=== PATIENT | male | born 1945 | race Hispanic/Latino ===

== ENCOUNTER 2020-10-24 17:46 | Emergency (ER) | payer MEDICARE ==
--- NOTE | 2020-10-24 18:40 | Event Note ---
ED Screening Note Date of service: 10/24/20 ED Screening Note: Patient complains of dysuria and hematuria x1 day History of prostate cancer Denies being on blood thinners This initial assessment/diagnostic orders/clinical plan/treatment(s) is/are subject to change based on patients health status, clinical progression and re- assessment by fellow clinical providers in the ED. Further treatment and workup at subsequent clinical providers discretion. Patient/guardian urged not to elope from the ED as their condition may be serious if not clinically assessed and managed. Initial orders include: Labs
[2020-10-24 18:51] VITALS: BP 149/88
[2020-10-24 18:57] LABS: Basophils # (Auto) 0.1 K/mm3 (0.0-0.1); Eosinophils # (Auto) 0.2 K/mm3 (0.0-0.4); Eosinophils % (Auto) 2.6 % (0.0-4.3); Hemoglobin 15.1 gm/dl (11.8-15.2); Lymphocytes # (Auto) 1.8 K/mm3 (1.2-5.4); Lymphocytes % (Auto) 30.1 % (13.4-35.0); Mean Corpuscular HGB Conc 34 % (32-34); Mean Corpuscular Volume 95 fl (84-94); Monocytes # (Auto) 0.5 K/mm3 (0.0-0.8); Monocytes % (Auto) 9.1 % (0.0-7.3); Platelet Count 237 K/mm3 (140-440); Red Blood Count 4.62 M/mm3 (3.65-5.03); Red Cell Distribution Width 14.4 % (13.2-15.2)
[2020-10-24 18:59] LABS: Bacteria,Urine 4+ /HPF (Negative); Mucus,Urine 3+ /HPF; Sperm,Urine 3+ /HPF (NP)
[2020-10-24 19:08] LABS: INR 1.06 (0.87-1.13); Partial Thromboplastin Time 29.2 Sec. (24.2-36.6)
[2020-10-24 19:18] LABS: Alanine Aminotransferase 13 units/L (7-56); Albumin 4.4 g/dL (3.9-5); BUN/Creatinine Ratio 19; Blood Urea Nitrogen 19 mg/dL (9-20); Calcium 9.4 mg/dL (8.4-10.2); Hemolysis Index 8
[2020-10-24 19:20] LABS: RBC,Urine > 182.0 /HPF (0.0-6.0); WBC,Urine > 182.0 /HPF (0.0-6.0)
--- NOTE | 2020-10-24 22:05 | Emergency Department Report ---
ED Male HPI - General Chief complaint: Urogenital-Male Stated complaint: BLOOD IN URINE Time Seen by Provider: 10/24/20 18:36 Source: patient Mode of arrival: Ambulatory Limitations: No Limitations - History of Present Illness Initial comments: Patient is a 75-year-old male who presents emergency room with complaints of blood and blood clots in his urine. Patient states he is having problems urinating. Patient states he is urinated 2 or 3 times since he is been in the ER. Patient states he is just passing blood and seeing some blood clots. Brian dubon states he has had this in the past. Patient has a history of prostate cancer. Patient states he called his urologist. Patient states his urologist stated to come to me ER if he is unable to urinate. Patient states he is not having difficulty urinating. Patient states is just a lot of blood. Patient denies abdominal pain. Patient denies dysuria. Patient denies any discomfort. Patient denies fever and chills. Patient denies headache. Patient denies chest pain and shortness of breath. Patient denies recent travel. Patient denies recent international travel. Patient denies exposure to the novel coronavirus. Patient denies sick contacts. Patient denies fever and chills. Patient denies cough. Patient denies diarrhea. Patient denies coming in contact with anybody with symptoms of the novel coronavirus. Complaint: other (Hematuria) -: Sudden, days(s) Severity: severe Severity scale (0 -10): 0 Consistency: constant Improves with: urination, rest Worsens with: none denies other symptoms, blood in urine. denies: discharge, swelling, mass, rash, urinary retention, dysuria, fever, nausea/vomiting, incontinence - Related Data Previous Rx's Medication Instructions Recorded Last Taken Type Ciprofloxacin HCl 500 mg PO BID 10 Days #20 tablet 10/24/20 Unknown Rx Allergies Allergy/AdvReac Type Severity Reaction Status Date / Time No Known Allergies Allergy Unverified 10/24/20 18:46 ED Review of Systems ROS: Stated complaint: BLOOD IN URINE Other details as noted in HPI Constitutional: denies: chills, fever Eyes: denies: eye pain, eye discharge, vision change ENT: denies: ear pain, throat pain Respiratory: denies: cough, shortness of breath, wheezing Cardiovascular: denies: chest pain, palpitations Endocrine: no symptoms reported Gastrointestinal: denies: abdominal pain, nausea, diarrhea Genitourinary: as per HPI, hematuria. denies: urgency, dysuria Musculoskeletal: denies: back pain, joint swelling, arthralgia Skin: denies: rash, lesions Neurological: denies: headache, weakness, paresthesias Psychiatric: denies: anxiety, depression Hematological/Lymphatic: denies: easy bleeding, easy bruising ED Past Medical Hx - Past Medical History Previous Medical History?: Yes Hx of Cancer: Yes (prostate) - Surgical History Past Surgical History?: Yes Hx Coronary Stent: Yes Additional Surgical History: left bicept tendon repair. right knee surgery - Family History Family history: no significant - Social History Smoking Status: Never Smoker Substance Use Type: None - Medications Home Medications: Home Medications Medication Instructions Recorded Confirmed Last Taken Type Ciprofloxacin HCl 500 mg PO BID 10 Days #20 tablet 10/24/20 Unknown Rx ED Physical Exam - General Limitations: No Limitations General appearance: alert, in no apparent distress - Head Head exam: Present: atraumatic, normocephalic - Eye Eye exam: Present: normal appearance - ENT ENT exam: Present: mucous membranes moist - Neck Neck exam: Present: normal inspection - Respiratory Respiratory exam: Present: normal lung sounds bilaterally. Absent: respiratory distress - Cardiovascular Cardiovascular Exam: Present: regular rate, normal rhythm. Absent: systolic murmur, diastolic murmur, rubs, gallop - GI/Abdominal GI/Abdominal exam: Present: soft, normal bowel sounds. Absent: distended, tenderness, guarding - Rectal Rectal exam: Present: deferred - Extremities Exam Extremities exam: Present: normal inspection - Back Exam Back exam: Present: normal inspection - Neurological Exam Neurological exam: Present: alert, oriented X3 - Psychiatric Psychiatric exam: Present: normal affect, normal mood - Skin Skin exam: Present: warm, dry, intact, normal color. Absent: rash ED Course Vital Signs 10/24/20 10/24/20 18:46 23:23 Temperature 98.1 F Pulse Rate 78 64 Respiratory 18 17 Rate Blood Pressure 149/88 O2 Sat by Pulse 99 98 Oximetry - Reevaluation(s) Reevaluation #1: I discussed all results and clinical findings with patient. I discussed plan of care with patient. Patient agrees with plan of care. Patient is stable for discharge. Patient will be discharged home. Patient given discharge ins tructions. Patient voiced understanding of discharge instructions. 10/24/20 22:40 ED Medical Decision Making - Lab Data Result diagrams: 10/24/20 18:39 10/24/20 18:38 - Medical Decision Making Patient is 75-year-old male who presents emergency room with gross hematuria. Patient did not have any urinary retention. Patient is able to urinate without difficulty. Patient patient's exam was negative. Patient denies any abdominal tenderness. Patient had labs done which were essentially unremarkable except for hematuria and leukocytes on UA. Patient's UA was unable be completed due to the amount of blood in it. Patient will be treated for UTI with antibiotics and patient will need to follow-up with the urologist. Patient [place] and the patient was given a local urologist even though he already has a urologist, [place] urologist is out of state. Patient does not have any urine retention. Patient given return to ER precautions for urinary retention. Patient given discharge instructions. Patient stable for discharge. - Differential Diagnosis Gross hematuria, prostatitis, UTI, Critical care attestation.: If time is entered above; I have spent that time in minutes in the direct care of this critically ill patient, excluding procedure time. ED Disposition Clinical Impression: Gross hematuria UTI (urinary tract infection) Qualifiers: Urinary tract infection type: acute cystitis Hematuria presence: with hematuria Qualified Code(s): N30.01 - Acute cystitis with hematuria Disposition: TO HOME OR SELFCARE Is pt being admited?: No Does the pt Need Aspirin: No Condition: Stable Instructions: Urinary Tract Infection, Adult, [id number], Antibiotic Medicine, Adult, Hematuria, Adult Additional Instructions: Patient to follow-up with primary care in 2 to 3 days. Patient to follow-up with urologist in 2 to 3 days. Patient to rest. Patient to increase water. Patient to avoid strenuous exercise or heavy lifting until cleared by urologist. Patient to take Tylenol as needed for pain. Patient to avoid aspirin and ibuprofen. Patient to take meds as directed. Patient to return to the ER if c ondition worsens, changes or new symptoms arise. Prescriptions: Ciprofloxacin HCl 500 mg PO BID 10 Days #20 tablet Referrals: BONG JONES MD [Primary Care Provider] - 2-3 Days ROJAS BARROSO MD [Staff Physician] - 2-3 Days Time of Disposition: 22:32
== END 2020-10-24 23:23 | disposition home or self-care (01) ==
LOC: ED 17:46
DX: N39.0 Urinary tract infection, site not specified (principal); R31.0 Gross hematuria; Z79.899 Other long term (current) drug therapy; Z98.890 Other specified postprocedural states
CPT/HCPCS: 36415; 80053; 81001; 85025; 85610; 85730; 99283